=== PATIENT | male | born 1950 | race Caucasian/White ===

== ENCOUNTER 2024-06-30 22:07 | Inpatient (IN) ==
--- NOTE | 2024-06-30 22:38 | ED Physician Documentation ---
History of Present Illness Stated complaint Stated Complaint: INCREASING WEAKNESS Chief complaint Chief Complaint: Resp Additonal information Additional information: 73-year-old with history of hyperlipidemia, depression, and atenolol use of unknown reason presents with altered mental status and weakness. Patient lives by himself. His daughter has been visiting daily and noticing he has progressively worsened and deteriorated over the last couple days. Today, he has been languishing on the couch and becoming more altered and less responsive. When EMS was called, he was found to have oxygen saturation 80%. He was placed on BiPAP and transferred here for further evaluation. At this time he is poorly responsive and barely answering yes or no questions. He denies chest pain and dyspnea when asked. I did confirm DNR/DNI with his POLST and his daughter. Meds/Allgy Allergies Allergies Allergy/AdvReac Type Severity Reaction Status Date / Time No Known Drug Allergies Allergy Verified 06/30/24 22:22 [facility] Active Problems All Active Problems (Updated 07/01/24 @ 00:13 by Alfredo Landyr MD) Acute metabolic encephalopathy (Acute) Sepsis (Acute) Acute hypercapnic respiratory failure (Acute) Pneumonia involving right lung (Acute) Social History Social History Smoking Status: Former smoker Relationship: Home Mobility Equipment: Walker Do you feel safe in your home environment?: Yes Suffered physical, verbal, emotional, or financial abuse?: No Exam Exam Patient is acutely ill and poorly responsive. Initially he does wake up and answer yes or no questions but is unable to ride further history. He is currently on BiPAP. Lung sounds are diminished bilaterally. Abdomen is soft and nontender. There is edema of the left lower extremity. There is edema of the left upper extremity. There are no sacral wounds. Results Vitals Vitals: Vital Signs - 24 hr 06/30/24 22:07 06/30/24 22:24 06/30/24 23:02 Temperature 36.3 C L Temperature Source Temporal Artery Scan Pulse Rate 97 90 78 Respiratory Rate 28 H 19 Blood Pressure 124/80 82/52 L O2 Saturation 92 97 O2 Source Room air BIPAP Fraction of Inspired Oxygen (FIO2) 100 FiO2 (%) 60 Pain Intensity 6 06/30/24 23:30 06/30/24 23:49 07/01/24 00:25 Temperature Temperature Source Pulse Rate 80 81 75 Respiratory Rate 24 Blood Pressure 92/51 L 93/60 79/48 L O2 Saturation 94 96 96 O2 Source BIPAP BIPAP BIPAP Fraction of Inspired Oxygen (FIO2) FiO2 (%) 60 60 Pain Intensity 0 07/01/24 00:41 07/01/24 01:00 07/01/24 01:05 Temperature Temperature Source Pulse Rate 73 72 73 Respiratory Rate 24 24 24 Blood Pressure 96/53 L 94/54 L 80/46 L O2 Saturation 96 96 95 O2 Source BIPAP BIPAP BIPAP Fraction of Inspired Oxygen (FIO2) FiO2 (%) Pain Intensity Oxygen O2 Source BIPAP EKG (time done) 2221: EKG releavant findings:: EKG personally interpreted by author of this note. Relevant findings are: Rate: Rate (enter#) (88) Rhythm: NSR Climax: RAD Intervals: Normal DE Ischemia: T wave inversion; No Normal ST segments, ST elevation c/w ischemia, ST depression or Hyperacute T waves Other comments: Other comments (T wave inversions in lead III, aVF, V1 through V5) Computer interpretation: Agree with computer Labs Labs: Laboratory Tests 06/30/24 06/30/24 06/30/24 22:15 22:52 23:21 WBC 14.5 H RBC 5.25 Hgb 14.7 Hct 50.7 MCV 96.6 H MCH 28.0 MCHC 29.0 L RDW 18.4 H Plt Count 173 MPV 12.6 H Neut # (Auto) 11.1 H Lymph # (Auto) 0.8 L [place] # (Auto) 2.2 H Eos # (Auto) 0.0 Baso # (Auto) 0.2 H Absolute Nucleated RBC 0.00 Band Neuts % (Manual) Not Reportable Abnorm Lymph % (Manual) Not Reportable Nucleated RBC % 0.0 Neutrophils # (Manual) Not Reportable Lymphocytes # (Manual) Not Reportable Monocytes # (Manual) Not Reportable Eosinophils # (Manual) Not Reportable Basophils # (Manual) Not Reportable Differential Comment MANUAL=AUTO DIFF Manual Slide Review Indicated Platelet Estimate NORMAL (130-450,000) Platelet Morphology NORMAL APPEARANCE RBC Morph Micro Appear 1+ ANISOCYTOSIS VBG pH 7.271 L VBG pCO2 81.4 H VBG pO2 39.0 VBG HCO3 37.8 H VBG Total CO2 40.3 H VBG O2 Saturation 53.0 L VBG Base Excess 10.7 H Sodium 140 Potassium 5.5 H Chloride 101 Carbon Dioxide 34 H Anion Gap 5.0 L BUN 44 H Creatinine 1.2 Estimated GFR (MDRD) 59 L Glucose 162 H Lactic Acid 2.8 H Calcium 8.6 Total Bilirubin 0.6 AST 25 ALT 12 Alkaline Phosphatase 61 Total Creatine Kinase 381 H Troponin I High Sens 82.1 H* Total Protein 6.7 Albumin 3.5 Globulin 3.2 Albumin/Globulin Ratio 1.1 Urine Color Urine Clarity Urine pH Ur Specific [place] Urine Protein Urine Glucose (UA) Urine Ketones Urine Occult Blood Urine Nitrite Urine Bilirubin Urine Urobilinogen Ur Leukocyte Esterase Urine RBC Urine WBC Ur Squamous Epith Cells Amorphous Sediment Urine Bacteria Urine Casts Urine Mucus Ur Microscopic Review Urine Culture Comments SARS-CoV-2 (PCR) NOT DETECTED 06/30/24 07/01/24 23:45 00:34 WBC RBC Hgb Hct MCV MCH MCHC RDW Plt Count MPV Neut # (Auto) Lymph # (Auto) [place] # (Auto) Eos # (Auto) Baso # (Auto) Absolute Nucleated RBC Band Neuts % (Manual) Abnorm Lymph % (Manual) Nucleated RBC % Neutrophils # (Manual) Lymphocytes # (Manual) Monocytes # (Manual) Eosinophils # (Manual) Basophils # (Manual) Differential Comment Manual Slide Review Platelet Estimate Platelet Morphology RBC Morph Micro Appear VBG pH 7.335 VBG pCO2 66.1 H VBG pO2 60.8 H VBG HCO3 35.6 H VBG Total CO2 37.6 H VBG O2 Saturation 87.0 H VBG Base Excess 9.5 H Sodium Potassium Chloride Carbon Dioxide Anion Gap BUN Creatinine Estimated GFR (MDRD) Glucose Lactic Acid Calcium Total Bilirubin AST ALT Alkaline Phosphatase Total Creatine Kinase Troponin I High Sens Total Protein Albumin Globulin Albumin/Globulin Ratio Urine Color DARK YELLOW Urine Clarity CLEAR Urine pH 5.5 Ur Specific [place] 1.025 Urine Protein 100 H Urine Glucose (UA) NEGATIVE Urine Ketones TRACE Urine Occult Blood NEGATIVE Urine Nitrite NEGATIVE Urine Bilirubin SMALL H Urine Urobilinogen 4 H Ur Leukocyte Esterase NEGATIVE Urine RBC 0-5 Urine WBC 4-5 Ur Squamous Epith Cells NONE SEEN Amorphous Sediment Few Urine Bacteria None Seen Urine Casts 11-25 Hyaline Casts Urine Mucus Few Strands Ur Microscopic Review INDICATED Urine Culture Comments NOT INDICATED SARS-CoV-2 (PCR) PD Medical Decision Making ED course Complexity details: reviewed results, re-evaluated patient, considered differential, d/w patient, d/w family and d/w PMD ED course: Patient presents with altered mental status and increasing weakness. While in the emergency department, his condition gradually deteriorated. He was maintained on BiPAP, but his VBG significant hypercarbia, so I uptitrated the settings appropriately hoping to venitilate his CO2. Chest radiograp hinterpreted by me shows consolidation of the right lung suspicious for pneuimonia. Given leukocytosis altered mental status and this, I think this is the cause of his symptoms. There was a mildly elevated lactate, so 2 L of fluids were given. Ceftriaxone was ordered. His blood pressure then started to drop, so norepinephrine was ordered. I discussed the case our hospitalist, and the patient was admitted to the ICU for further monitoring of pneumonia and critical status. Patient is DNR/DNI, which I confirmed with his daughter. Critical Care Critical Care Provided: Yes Time(min): 40 Time Includes: Direct patient care, Review records, Reassess patient, Document care, Coordinate care, Medical consult and Family consult for tx dec Data interpretation: Labs, Pulse ox, ABG and CXR Procedures included in critical care time: Ventilator mgmt Discharge Plan Discharge Patient Disposition: 66 [facility] DC/Xfer Condition: Critical Clinical Impression: Pneumonia involving right lung, Acute hypercapnic respiratory failure, Sepsis, Acute metabolic encephalopathy Interventions: ED Admission Assessment Last Done: 07/01/24 01:15
[2024-06-30 22:50] LABS: BASOPHILS # (AUTO) 0.2 10^3/uL (0.0-0.1); EOSINOPHILS % (AUTO) 0.1 %; HCT - HEMATOCRIT 50.7 % (42.0-52.0); HGB - HEMOGLOBIN 14.7 g/dL (14.0-18.0); LYMPHOCYTES # (AUTO) 0.8 10^3/uL (1.5-3.5); LYMPHOCYTES % (AUTO) 5.7 %; MEAN CORPUSCULAR VOLUME 96.6 fL (80.0-94.0); MEAN PLATELET VOLUME 12.6 fL (7.4-11.4); MONOCYTES # (AUTO) 2.2 10^3/uL (0.0-1.0); MONOCYTES % (AUTO) 15.1 %; NEUTROPHILS # (AUTO) 11.1 10^3/uL (1.5-6.6); NEUTROPHILS % (AUTO) 76.5 %; PLT - PLATELET COUNT 173 10^3/uL (130-450); RED BLOOD COUNT 5.25 10^6/uL (4.70-6.10); RED CELL DISTRIBUTION WIDTH 18.4 % (12.0-15.0); WHITE BLOOD COUNT 14.5 x10^3/uL (4.8-10.8)
[2024-06-30 22:59] LABS: VBG PCO2 81.4 mmHg (41-51); VBG PH 7.271 (7.31-7.41)
[2024-06-30 23:00] LABS: SLIDE REVIEW? Indicated
[2024-06-30 23:00] LABS: VBG BASE EXCESS 10.7 mmol/L (-2 - +2); VBG TOTAL CO2 40.3 mmol/L (24-29)
[2024-06-30] MEDS: LACTATED RINGERS 1,000 ML IV ONE (23:12)
[2024-06-30 23:18] LABS: ALBUMIN 3.5 g/dL (3.2-5.5); ALBUMIN/GLOBULIN RATIO 1.1 (1.0-2.2); BILIRUBIN,TOTAL 0.6 mg/dL (0.2-1.0); CALCIUM 8.6 mg/dL (8.5-10.3); CREATININE 1.2 mg/dL (0.6-1.3); POTASSIUM 5.5 mmol/L (3.5-4.5); TOTAL PROTEIN 6.7 g/dL (6.4-8.9)
--- NOTE | 2024-06-30 23:18 | XRAY Report ---
PROCEDURE: XR Chest 1V INDICATIONS: shortness of air TECHNIQUE: One view of the chest was acquired. COMPARISON: None. FINDINGS AND IMPRESSION: Right mid and lower lung consolidation. Small right pleural effusion. This is suspicious for pneumoni a. Consider future imaging surveillance to assess for resolution. Normal heart size. Degenerative osseous changes. Reviewed by: Etienne Tomas MD on 06/30/2024 11:17 PM PDT Approved by: Etienne Tomas MD on 06/30/2024 11:17 PM PDT Station ID: [id number]
[2024-06-30 23:21] LABS: PLATELET ESTIMATE, MANUAL NORMAL (130-450,000) (NORMAL); PLATELET MORPHOLOGY NORMAL APPEARANCE (NORMAL); RBC MORPHOLOGY (MULTIPLE) 1+ ANISOCYTOSIS (NORMAL)
[2024-06-30 23:22] LABS: DIFFERENTIAL COMMENT MANUAL=AUTO DIFF
[2024-06-30] MEDS ORDERED: cefTRIAXone 2 GM VIAL ONE (23:28)
[2024-06-30] MEDS: cefTRIAXone 2 GM in SODIUM CHLORIDE 0.9% MINIBAG 100 ML IV STA (23:31)
[2024-06-30 23:54] LABS: BILIRUBIN,URINE SMALL (NEGATIVE); GLUCOSE, URINE (UA) NEGATIVE (NEGATIVE); KETONES,URINE (UA) TRACE mg/dL (NEGATIVE); LEUKOCYTE ESTERASE, URINE NEGATIVE (NEGATIVE); NITRITE,URINE NEGATIVE (NEGATIVE); OCCULT BLOOD,URINE NEGATIVE (NEGATIVE); PH,URINE 5.5 PH (5.0-7.5); PROTEIN,URINE 100 mg/dL (NEGATIVE); UROBILINOGEN,URINE 4 E.U./dL (NORMAL)
[2024-06-30 23:58] LABS: CLARITY,URINE CLEAR (CLEAR)
[2024-07-01 00:05] LABS: RBC,URINE 0-5 /HPF (0-5); SQUAMOUS EPITHELIAL CELL,UR NONE SEEN (<= Few)
[2024-07-01 00:06] LABS: AMORPHOUS SEDIMENT,UR Few /LPF; BACTERIA,URINE None Seen /HPF (None Seen); CASTS, URINE 11-25 Hyaline Casts /LPF; MUCUS,URINE Few Strands
[2024-07-01] MEDS: LACTATED RINGERS 1,000 ML IV ONE ×2 (00:35→11:50)
[2024-07-01 00:50] LABS: VBG BASE EXCESS 9.5 mmol/L (-2 - +2); VBG PCO2 66.1 mmHg (41-51); VBG PH 7.335 (7.31-7.41); VBG PO2 60.8 mmHg (25-47); VBG TOTAL CO2 37.6 mmol/L (24-29)
[2024-07-01] MEDS ORDERED: ONDANSETRON 4 MG/2 ML VIAL IVP PRN (00:51)
[2024-07-01] MEDS ORDERED: ACETAMINOPHEN 325 MG TABLET PO PRN (00:51)
[2024-07-01] MEDS ORDERED: PIPERACILLIN/TAZOBACTAM 3.375 GM in SODIUM CHLORIDE 0.9% MINIBAG 100 ML IV SCH (01:00)
--- NOTE | 2024-07-01 01:21 | HISTORY & PHYSICAL EXAMINATION ---
Chief Complaint Chief Complaint Chief Complaint: AMS History of Present Illness History of Present Illness HPI Comment/Other: 73 Y old male with PMH HTN, hyperlipidemia, brought to the ER due to AMS. Pt is currently confused and on Bipap and unable to provide any history so most of history is by ER physician. Apparently pt`s condition was deteriorating over the last several years. When daughter saw him, he was confused. EMS was called. Pt was hypoxic with Sao2 80%. Pt was put on Bipap and brought to the ER. On arrival pt, was hypoxic , confused and hypotensive. Labs showed leukocytois, lactic acid 2.3, Trop 80. VBG showed hypercarbia chest x ray showed Right lung consolidation with pleural effusion Pt was oin bipap Pt was given IVF, Ceftriaxone Levophed gtt was ordered due to hypotension Pt is admitted due to Acute hypoxic/hypercarbic respiratory failure due to pneumonia, pleural effusion, severe sepsis, elevated trop Review of Systems Status of ROS: unobtainable due to medical condition PFSH Active Problems All Active Problems (Updated 07/01/24 @ 00:13 by Alfredo Landry MD) Acute metabolic encephalopathy (Acute) Sepsis (Acute) Acute hypercapnic respiratory failure (Acute) Pneumonia involving right lung (Acute) Social History Social History Relationship: Do you feel safe in your home environment?: Yes Suffered physical, verbal, emotional, or financial abuse?: No POLST Patient has POLST: Yes Meds/Allgy Allergies Allergies Allergy/AdvReac Type Severity Reaction Status Date / Time No Known Drug Allergies Allergy Verified 06/30/24 22:22 Exam Constitutional Pt appears confused, on BIPAP HENMT normocephalic Chest inspection of chest normal Respiratory Decreased breath sounds in right lung Cardiovascular normal heart rate noted Gastrointestinal abdomen normal to inspection Extremities normal to inspection Neurology Pt is confused Skin no rash Conclusion/Plan Problem List (1) Pneumonia involving right lung: Plan: A: Acute hypoxic/hypercarbic respiratory failure Right lung pneumonia, possible aspiration Pleural effusion Severe sepsis/ Shock Acute encephalopathy Elevated troponin Leukocytosis Lactic acidosis HTN Hyperlipidemia Plan: Admit in ICU Bipap NPO Swallow eval Follow cultures Start zosyn and vanco Duo nebs q6h Start NS @ 125 cc/h Monitor lactic acid q6h Start levophed gtt per protocol Seriel trop Repeat CBC, BMP in am DVT prophylaxic: SCD, lovenox sq Full code Pt is admitted as inpatient as more than 2 midnight stay is expceted Lab Results 06/30/24 22:15 06/30/24 22:15
[2024-07-01] MEDS: NOREPINEPHRINE/0.9 % NS 8 MG/250 ML BAG IV SCH (01:26)
[2024-07-01] MEDS: SODIUM CHLORIDE FLUSH 0.9% 10 ML SYRINGE IVP SCH (01:53)
[2024-07-01] MEDS: SODIUM CHLORIDE 0.9% 1,000 ML IV SCH (01:53)
[2024-07-01] MEDS: IPRATROPIUM/ALBUTEROL 3 ML NEB INH SCH (01:53)
[2024-07-01] MEDS ORDERED: VANCOMYCIN INJ 1.75 GM in SODIUM CHLORIDE 0.9% 500 ML IV SCH (02:00)
[2024-07-01] MEDS: PIPERACILLIN/TAZOBACTAM 3.375 GM in SODIUM CHLORIDE 0.9% MINIBAG 100 ML IV SCH (05:10)
[2024-07-01 05:37] LABS: CALCIUM, IONIZED 1.12 mmol/L (1.09-1.30); VBG PH 7.347 (7.31-7.41)
[2024-07-01 05:43] LABS: BASOPHILS # (AUTO) 0.1 10^3/uL (0.0-0.1); BASOPHILS % (AUTO) 0.7 %; HCT - HEMATOCRIT 44.4 % (42.0-52.0); HGB - HEMOGLOBIN 12.9 g/dL (14.0-18.0); LYMPHOCYTES # (AUTO) 0.8 10^3/uL (1.5-3.5); LYMPHOCYTES % (AUTO) 5.7 %; MEAN CORPUSCULAR HEMOGLOBIN 27.9 pg (27.0-31.0); MEAN CORPUSCULAR HGB CONC 29.1 g/dL (32.0-36.0); MEAN CORPUSCULAR VOLUME 95.9 fL (80.0-94.0); MEAN PLATELET VOLUME 12.7 fL (7.4-11.4); MONOCYTES # (AUTO) 2.6 10^3/uL (0.0-1.0); MONOCYTES % (AUTO) 18.5 %; NEUTROPHILS # (AUTO) 10.2 10^3/uL (1.5-6.6); NEUTROPHILS % (AUTO) 74.2 %; PLT - PLATELET COUNT 162 10^3/uL (130-450); RED BLOOD COUNT 4.63 10^6/uL (4.70-6.10); RED CELL DISTRIBUTION WIDTH 17.8 % (12.0-15.0); WHITE BLOOD COUNT 13.8 x10^3/uL (4.8-10.8)
[2024-07-01 05:49] LABS: SLIDE REVIEW? Indicated
[2024-07-01 05:57] LABS: CALCIUM 7.8 mg/dL (8.5-10.3); PHOSPHORUS 4.7 mg/dL (2.5-5.0); POTASSIUM 5.6 mmol/L (3.5-4.5)
[2024-07-01 06:08] LABS: TROPONIN I HIGH SENSITIVITY 97.2 ng/L (2.3-19.7)
[2024-07-01 06:56] LABS: PLATELET ESTIMATE, MANUAL NORMAL (130-450,000) (NORMAL); PLATELET MORPHOLOGY NORMAL APPEARANCE (NORMAL); RBC MORPHOLOGY (MULTIPLE) NORMAL APPEARANCE (NORMAL)
[2024-07-01 06:57] LABS: DIFFERENTIAL COMMENT MANUAL=AUTO DIFF
[2024-07-01] MEDS: ENOXAPARIN 40 MG/0.4 ML SYRINGE SUBQ SCH (08:53)
[2024-07-01] MEDS: VANCOMYCIN INJ 2 GM, VANCOMYCIN INJ 500 MG in SODIUM CHLORIDE 0.9% 500 ML IV ONE (08:54)
[2024-07-01] MEDS: HYDROCORTISONE SUCCINATE 100 MG/2 ML VIAL IVP SCH (09:59)
[2024-07-01 13:11] LABS: POTASSIUM 5.6 mmol/L (3.5-4.5)
[2024-07-01 13:17] LABS: TROPONIN I HIGH SENSITIVITY 114.3 ng/L (2.3-19.7)
[2024-07-01] MEDS ORDERED: VANCOMYCIN INJ 0.75 GM in SODIUM CHLORIDE 0.9% 250 ML IV SCH (14:00)
[2024-07-01] MEDS: INSULIN REGULAR, HUMAN 300 UNIT/3 ML PEN IVP ONE (14:04)
[2024-07-01] MEDS: DEXTROSE 50% ABBOJECT 25 GM/50 ML SYRINGE IVP ONE (14:04)
[2024-07-01] MEDS: SODIUM ZIRCONIUM CYCLOSILICATE 5 GM PACKET PO SCH (14:08)
[2024-07-01] MEDS ORDERED: CONCENTRATED ALBUTEROL NEB 2.5 MG/0.5 ML INH ONE (14:30)
[2024-07-01] MEDS: CONCENTRATED ALBUTEROL NEB 2.5 MG/0.5 ML INH STA (14:31)
[2024-07-01 15:17] LABS: ABG BASE EXCESS 6.8 mmol/L (-2.0-3.0); ABG HCO3 34.2 mmol/L (22.0-26.0); ABG OXYGEN SATURATION 96 % (95-98); ABG PH 7.25 (7.35-7.45); ABG PO2 85 mmHg (83-108); ABG TCO2 36.5 mmol/L (21.0-29.0)
[2024-07-01 15:18] LABS: ALLEN TEST POSITIVE
[2024-07-01 15:21] LABS: ABG PCO2 77 mmHg (34-45)
--- NOTE | 2024-07-01 15:58 | CT Report ---
PROCEDURE: CT Head WO INDICATIONS: Transient alteration of consciousness TECHNIQUE: Noncontrast 4.5 mm thick angled axial sections acquired from the foramen magnum to the vertex. For r adiation dose reduction, the following was used: automated exposure control, adjustment of mA and/or kV according to patient size. COMPARISON: None. FINDINGS: Image quality: Diagnostic. Some images are limited by beam hardening artifacts, patient motion artifa cts. Ventricles and cortical sulci are moderately dilated commonly represents a pattern of atrophy. [id number] areas of low-attenuation in the periventricular and deep white matter commonly relat ed to chronic small vessel ischemic changes. Mucoperiosteal thickening, retention cyst or polyp opacification right maxillary sinus measures up to 2 cm thickness. E dentulous. Moderate vascular calcifications bilateral cavernous, supraclinoid carotids. No CT evidence of intracranial hemorrhage, mass lesion, mass effect, acute or subacute infarct. Otherwise the orbits, scalp, calvarium, mastoid air cells and middle air cavities within normal limit s. IMPRESSION: Atrophy and chronic small vessel ischemic changes. No CT evidence of intracranial hemorrhage. If symptoms persist or worsen, or there is high clinical suspicion of intracranial abnormality, MR co uld be performed. Reviewed by: Aryan Castañeda MD on 07/01/2024 3:57 PM PDT Approved by: Aryan Castañeda MD on 07/01/2024 3:57 PM PDT Station ID: [id number]
[2024-07-01 18:13] LABS: CALCIUM 7.9 mg/dL (8.5-10.3); CREATININE 1.2 mg/dL (0.6-1.3); POTASSIUM 4.8 mmol/L (3.5-4.5)
[2024-07-01] MEDS: VANCOMYCIN INJ 1 GM, VANCOMYCIN INJ 250 MG in SODIUM CHLORIDE 0.9% 250 ML IV SCH (20:02)
[2024-07-01] MEDS ORDERED: LIDOCAINE 2% URO-JET 5 ML SYRINGE UR PRN (20:56)
[2024-07-02 04:55] LABS: HCT - HEMATOCRIT 40.7 % (42.0-52.0); HGB - HEMOGLOBIN 11.3 g/dL (14.0-18.0); MEAN CORPUSCULAR HEMOGLOBIN 27.9 pg (27.0-31.0); MEAN CORPUSCULAR HGB CONC 27.8 g/dL (32.0-36.0); MEAN CORPUSCULAR VOLUME 100.5 fL (80.0-94.0); RED BLOOD COUNT 4.05 10^6/uL (4.70-6.10); RED CELL DISTRIBUTION WIDTH 17.6 % (12.0-15.0); WHITE BLOOD COUNT 16.6 x10^3/uL (4.8-10.8)
[2024-07-02 05:10] LABS: CALCIUM 7.2 mg/dL (8.5-10.3); CREATININE 0.9 mg/dL (0.6-1.3); MAGNESIUM 1.9 mg/dL (1.7-2.3)
--- NOTE | 2024-07-02 09:41 | PROVIDER PROGRESS NOTE ---
Subjective Subjective Subjective: Today, patient's mentation is improved. He is alert and oriented x 4. He states that his shortness of breath has gotten mildly worse. He feels like he has a wet cough, but nothing is coming up. He has no fevers or chills. Overall, he has not been taking very good care of himself. He has not filled medications in the last few years. His only medical history that he can tell me is that he had a cardiac stent placed many years ago. Current Medications Current Medications Current Medications: Current Medications Generic Name Dose Route Start Last Admin Trade Name Freq PRN Reason Stop Dose Admin Acetaminophen 650 mg 07/01/24 00:51 Acetaminophen 325 Mg Tablet PO Q4HR PRN Pain 1 to 4, or Fever Albuterol/Ipratropium 3 ml 07/01/24 01:00 07/02/24 07:49 Ipratropium/Albuterol 3 Ml Neb INH 3 ml RTQ6H DAVID Administration Enoxaparin Sodium 40 mg 07/01/24 09:00 07/02/24 08:07 Enoxaparin 40 Mg/0.4 Ml Syringe SUBQ 40 mg DAILY DAVID Administration Hydrocortisone Sodium Succinate 100 mg 07/01/24 10:00 07/02/24 05:25 Hydrocortisone Succinate 100 Mg/2 Ml Vial IVP 100 mg TID DAVID Administration Norepinephrine/Sodium Chloride 8 mg in 250 mls @ 7.5 mls/hr 07/01/24 01:00 07/02/24 08:00 Levophed 8 Mg/250-0.9% Nacl IV 0 mcg/min .[id number] DAVID 0 mls/hr Titration Protocol 4 MCG/MIN Sodium Chloride 1,000 mls @ 125 mls/hr 07/01/24 01:00 07/02/24 08:15 Normal Saline 0.9% IV 0 mls/hr .Q8H DAVID Infusion Piperacillin Sod/Tazobactam 100 mls @ 25 mls/hr 07/01/24 05:00 07/02/24 05:25 Sod 3.375 gm/ Sodium Chloride IV 25 mls/hr Q8H DAVID Administration Vancomycin HCl 1 gm/ 250 mls @ 167 mls/hr 07/01/24 20:00 07/02/24 08:07 Vancomycin HCl 250 mg/ Sodium IV 167 mls/hr Chloride Q12H DAVID Administration Lidocaine HCl 2.5 ml 07/01/24 20:56 Lidocaine 2% Uro-Jet 5 Ml Syringe UR 07/02/24 20:55 ONCE PRN PER PHYSICIAN ORDER Ondansetron HCl 4 mg 07/01/24 00:51 Ondansetron 4 Mg/2 Ml Vial IVP Q6HR PRN Nausea / Vomiting Sodium Chloride 10 ml 07/01/24 01:00 07/02/24 08:09 Sodium Chloride Flush 0.9% 10 Ml Syringe IVP 10 ml 0100,0900,1700 DAVID Administration Sodium Chloride 10 ml 07/01/24 00:51 Sodium Chloride Flush 0.9% 10 Ml Syringe IVP PRN PRN NEEDED PER PROVIDER ORDERS Objective Vital Signs/Intake & Output Reviewed Vital Signs: Yes Vital Signs: Vital Signs x48h Temp Pulse Pulse Resp BP Pulse Ox O2 Flow Rate 07/02/24 09:00 92 21 107/50 L 96 10 07/02/24 08:26 100 20 6 07/02/24 08:00 99.0 F 92 24 110/56 L 89 L 6 07/02/24 07:00 84 18 106/54 L 94 14 07/02/24 06:00 85 16 102/49 L 98 14 07/02/24 05:00 14 07/02/24 05:00 83 17 97/50 L 98 14 07/02/24 04:00 99.3 F 83 17 91/40 L 97 14 07/02/24 03:00 87 30 H 120/58 L 96 14 07/02/24 03:00 14 07/02/24 02:00 86 17 105/55 L 95 14 Intake & Output: Intake & Output 06/29/24 06/30/24 07/01/24 07/02/24 23:59 23:59 23:59 23:59 Intake Total 1100 / 1100 5825 / 5825 2749 / 2749 Output Total 200 / 200 162 / 162 Balance 1100 / 1100 5625 / 5625 2587 / 2587 Weight (kg) 89 kg 98 kg 96.5 kg Objective General Appearance: positive No acute distress and Alert; negative Anxious Eyes Bilateral: positive Normal inspection, PERRL and EOMI ENT: positive ENT inspection nml, Pharynx nml and No signs of dehydration Neck: positive Nml inspection, Thyroid nml and No JVD Respiratory: positive Chest non-tender, No respiratory distress, Wheezes (mild expiratory), Rales (mild bibasilar crackles) and Other (diminished air entry bilaterally) Cardiovascular: positive Regular rate & rhythm and No murmur; negative Systolic murmur or Diastolic murmur Abdomen: positive Non-tender; negative Tenderness, Guarding, Rebound, Hepatomegaly, Splenomegaly or Mass Back: positive Nml inspection; negative CVA tenderness (R) or CVA tenderness (L) Skin: positive Color nml, No rash, Warm and Dry Extremities: positive No pedal edema; negative Non-tender (Bilateral feet with extensive scaling, onychomycosis, distorted nails) Neurologic/Psychiatric: positive Oriented x3 and Mood/affect nml Lab Results 07/02/24 04:15 07/02/24 04:15 Other Labs: Lab Results x24hrs 07/02/24 07/02/24 07/01/24 Range/Units 08:57 04:15 17:55 WBC 16.6 H (4.8-10.8) x10^3/uL RBC 4.05 L (4.70-6.10) 10^6/uL Hgb 11.3 L (14.0-18.0) g/dL Hct 40.7 L (42.0-52.0) % MCV 100.5 H (80.0-94.0) fL MCH 27.9 (27.0-31.0) pg MCHC 27.8 L (32.0-36.0) g/dL RDW 17.6 H (12.0-15.0) % Plt Count 140 (130-450) 10^3/uL MPV 13.0 H (7.4-11.4) fL Bld Gas Analysis Time Sample Site ABG pH (7.35-7.45) ABG pCO2 (34-45) mmHg ABG pO2 (83-108) mmHg ABG HCO3 (22.0-26.0) mmol/L ABG Total CO2 (21.0-29.0) mmol/L ABG O2 Saturation (95-98) % ABG Base Excess (-2.0-3.0) mmol/L Jesus Test O2 Delivery Device O2 Liters/Min LPM Sodium 140 144 (135-145) mmol/L Potassium 5.0 H 4.8 H (3.5-4.5) mmol/L Chloride 107 107 (101-111) mmol/L Carbon Dioxide 30 31 (21-32) mmol/L Anion Gap 3.0 L 6.0 (6-13) BUN 32 H 37 H (6-20) mg/dL Creatinine 0.9 1.2 (0.6-1.3) mg/dL Estimated GFR (MDRD) 82 L 59 L (>89) Glucose 159 H 180 H (74-104) mg/dL Calcium 7.2 L 7.9 L (8.5-10.3) mg/dL Magnesium 1.9 (1.7-2.3) mg/dL Total Creatine Kinase (30-223) IU/L Troponin I High Sens 53.1 H* (2.3-19.7) ng/L 07/01/24 07/01/24 Range/Units 15:05 12:41 WBC (4.8-10.8) x10^3/uL RBC (4.70-6.10) 10^6/uL Hgb (14.0-18.0) g/dL Hct (42.0-52.0) % MCV (80.0-94.0) fL MCH (27.0-31.0) pg MCHC (32.0-36.0) g/dL RDW (12.0-15.0) % Plt Count (130-450) 10^3/uL MPV (7.4-11.4) fL Bld Gas Analysis Time 1511 Sample Site RIGHT RADIAL ABG pH 7.25 L (7.35-7.45) ABG pCO2 77 H* (34-45) mmHg ABG pO2 85 (83-108) mmHg ABG HCO3 34.2 H (22.0-26.0) mmol/L ABG Total CO2 36.5 H (21.0-29.0) mmol/L ABG O2 Saturation 96 (95-98) % ABG Base Excess 6.8 H (-2.0-3.0) mmol/L Jesus Test POSITIVE O2 Delivery Device OXYMASK O2 Liters/Min 6.00 LPM Sodium 143 (135-145) mmol/L Potassium 5.6 H (3.5-4.5) mmol/L Chloride 107 (101-111) mmol/L Carbon Dioxide 35 H (21-32) mmol/L Anion Gap 1.0 L (6-13) BUN 35 H (6-20) mg/dL Creatinine 1.0 (0.6-1.3) mg/dL Estimated GFR (MDRD) 73 L (>89) Glucose 103 (74-104) mg/dL Calcium 8.0 L (8.5-10.3) mg/dL Magnesium (1.7-2.3) mg/dL Total Creatine Kinase 120 (30-223) IU/L Troponin I High Sens 114.3 H* (2.3-19.7) ng/L Diagnostic Imaging Diagnostic Imaging Results: positive Final report reviewed Assessment/Plan Problem List (1) Acute hypoxic respiratory failure: Impression: When patient presented, he was altered, had increased work of breathing, and was hypoxic requiring BiPAP. Chest x-ray she did menstruated right mid and lower lung consolidation, as well as a small right pleural effusion. Treating for pneumonia at this time. Patient also was septic, requiring Levophed, which has now been weaned off. BiPAP has been slowly weaned off to 7 L nasal cannula. Blood cultures, sputum cultures have been ordered and are pending. Received vancomycin and Zosyn. Will de-escalate him to [place] and azithromycin. Pending cultures, susceptibilities, as well as clinical course for further antibiotic management. (2) Septic shock: Impression: Patient was in septic shock requiring pressor support. This is now been weaned off. Was started on stress dose steroids initially. Will down titrate hydrocortisone 100 mg 3 times daily to twice daily today. Plan to continue to wean stress dose steroids. (3) Elevated troponin: Impression: Downtrending. No active chest pain. No EKG changes noted to demonstrate ischemia. Likely secondary to demand ischemia in setting of above. (4) Respiratory acidosis: Impression: Patient has no history of obesity hypoventilation syndrome, COPD, asthma. However, did have CO2 retention and respiratory acidosis. Received BiPAP, and this is now improved. (5) Hyperkalemia: Impression: Persistent hyperkalemia. Normal renal function noted. Continue to treat, and trend. (6) Hx of heart artery stent: Impression: Patient does have a history of a heart stent placed many years ago. As such, he should at least be on aspirin and statin. He is unsure what medications he is taking. Will start this at this time.
[2024-07-02] MEDS: SODIUM CHLORIDE FLUSH 0.9% 10 ML SYRINGE IVP PRN (13:04)
--- NOTE | 2024-07-02 13:24 | PHARMACY PROGRESS NOTE ---
Best Possible Medication History Admit Date and Time: 07/01/24 [id number] Home Medications Medication Instructions Recorded Confirmed Type No Known Home Medications 07/02/24 07/02/24 History Processed by: Pharmacy Medications reviewed in ED?: No Medication History completed: Yes Patient Interview: Pt unable to participate Secondary Source(s): Pharmacy records and Insurance records [facility] Statement: As the person ultimately responsible for medication therapy, providers are able to order a medication from an existing home medication list in [facility] via the "Reconcile Routine" prior to Confirmation of that medication by customer support manager. Such practice is discouraged except when the physician, in their clinical judgment, deems that a medical need exists for a medication without regard to previous use.
[2024-07-02 16:34] LABS: B. PARAPERTUSSIS- RESP PCR PAN NOT DETECTED; B. PERTUSSIS- RESP PCR PANEL NOT DETECTED; C. PNEUMONIAE- RESP PCR PANEL NOT DETECTED; CORONAVIRUS 229E-RESP PCR NOT DETECTED; CORONAVIRUS HKU1-RESP PCR NOT DETECTED; CORONAVIRUS NL63-RESP PCR NOT DETECTED; CORONAVIRUS OC43-RESP PCR NOT DETECTED; HUMAN METAPNEUMOVIRUS NOT DETECTED; INFLUENZA A- RESP PCR PANEL NOT DETECTED; INFLUENZA B - RESP PCR PANEL NOT DETECTED; M. PNEUMONIAE- RESP PCR PANEL NOT DETECTED; PARAINFLUENZA VIRUS 1 NOT DETECTED; PARAINFLUENZA VIRUS 2 NOT DETECTED; PARAINFLUENZA VIRUS 4 NOT DETECTED; RHINOVIRUS/ENTEROVIRUS NOT DETECTED; RSV- RESP PCR PANEL NOT DETECTED; SARS-CoV-2 -RESP PCR PANEL NOT DETECTED
[2024-07-02] MEDS: ATORVASTATIN 40 MG TABLET PO SCH (20:31)
[2024-07-02] MEDS: HYDROCORTISONE SUCCINATE 100 MG/2 ML VIAL IVP SCH (20:31)
[2024-07-03 05:20] LABS: HCT - HEMATOCRIT 40.5 % (42.0-52.0); HGB - HEMOGLOBIN 11.3 g/dL (14.0-18.0); MEAN CORPUSCULAR HEMOGLOBIN 27.8 pg (27.0-31.0); MEAN CORPUSCULAR HGB CONC 27.9 g/dL (32.0-36.0); MEAN CORPUSCULAR VOLUME 99.5 fL (80.0-94.0); RED BLOOD COUNT 4.07 10^6/uL (4.70-6.10); RED CELL DISTRIBUTION WIDTH 17.4 % (12.0-15.0); WHITE BLOOD COUNT 24.6 x10^3/uL (4.8-10.8)
[2024-07-03 05:27] LABS: CALCIUM, IONIZED 1.17 mmol/L (1.09-1.30); VBG PH 7.288 (7.31-7.41)
[2024-07-03 05:32] LABS: MAGNESIUM 1.9 mg/dL (1.7-2.3); PHOSPHORUS 2.9 mg/dL (2.5-5.0)
[2024-07-03 05:55] LABS: CALCIUM 7.7 mg/dL (8.5-10.3); CREATININE 1.1 mg/dL (0.6-1.3); POTASSIUM 5.1 mmol/L (3.5-4.5)
[2024-07-03] MEDS: ASPIRIN EC 81 MG TABLET PO SCH (08:08)
[2024-07-03] MEDS: AZITHROMYCIN 250 MG TABLET PO SCH (08:08)
[2024-07-03] MEDS: cefTRIAXone 1 GM VIAL IVP SCH (08:08)
[2024-07-03] MEDS: HYDROCORTISONE SUCCINATE 100 MG/2 ML VIAL IVP SCH (08:08)
[2024-07-03] MEDS ORDERED: SODIUM CHLORIDE FOR INHALATION 5 ML NEB ONE (09:02)
[2024-07-03] MEDS: CONCENTRATED ALBUTEROL NEB 2.5 MG/0.5 ML INH STA (09:07)
[2024-07-03] MEDS: DEXTROSE 50% ABBOJECT 25 GM/50 ML SYRINGE IVP ONE (09:09)
[2024-07-03] MEDS: SODIUM ZIRCONIUM CYCLOSILICATE 5 GM PACKET PO SCH (09:09)
[2024-07-03] MEDS: INSULIN REGULAR, HUMAN 300 UNIT/3 ML PEN IVP ONE (09:10)
--- NOTE | 2024-07-03 09:50 | PROVIDER PROGRESS NOTE ---
Subjective Subjective Subjective: Patient is a 73-year-old male with a past medical history of a cardiac stent in 2020, unknown status of heart failure, extensive tobacco use with no formal diagnosis of COPD who presented with worsening dyspnea, fatigue, altered mentation. He was in septic shock, with a likely pulmonary source. He was initially placed on BiPAP with improvement in his mentation and his breathing status. He was initially on vancomycin and and Zosyn, which was de-escalated to Rocephin and azithromycin. He has been weaned off of vasopressors, and now is on 4 L via oxy mask. Today, patient states he feels better. He feels like his breathing is better. He has had no fevers or chills. He still has a cough with productive sputum. He states that he smoked about 1 to 2 packs/day for over 20 years, and quit 3 years ago. He has never used inhalers or have been admitted for COPD exacerbations. He has not seen a doctor in many years. He does state that in 2020, he saw a hide buffer, and had a cardiac stent placed. He does not know if he has a history of heart failure. Current Medications Current Medications Current Medications: Current Medications Generic Name Dose Route Start Last Admin Trade Name Freq PRN Reason Stop Dose Admin Acetaminophen 650 mg 07/01/24 00:51 Acetaminophen 325 Mg Tablet PO Q4HR PRN Pain 1 to 4, or Fever Albuterol/Ipratropium 3 ml 07/01/24 01:00 07/03/24 06:59 Ipratropium/Albuterol 3 Ml Neb INH 3 ml RTQ6H DAVID Administration Aspirin 81 mg 07/03/24 09:00 07/03/24 08:08 Aspirin Ec 81 Mg Tablet PO 81 mg DAILY DAVID Administration Atorvastatin Calcium 40 mg 07/02/24 21:00 07/02/24 20:31 Atorvastatin 40 Mg Tablet PO 40 mg QPM DAVID Administration Azithromycin 500 mg 07/03/24 09:00 07/03/24 08:08 Azithromycin 250 Mg Tablet PO 500 mg DAILY DAVID Administration Ceftriaxone Sodium 1 gm 07/03/24 09:00 07/03/24 08:08 Ceftriaxone 1 Gm Vial IVP 1 gm DAILY DAVID Administration Enoxaparin Sodium 40 mg 07/01/24 09:00 07/03/24 08:08 Enoxaparin 40 Mg/0.4 Ml Syringe SUBQ 40 mg DAILY DAVID Administration Hydrocortisone Sodium Succinate 50 mg 07/03/24 09:00 07/03/24 08:08 Hydrocortisone Succinate 100 Mg/2 Ml Vial IVP 50 mg BID DAVID Administration Norepinephrine/Sodium Chloride 8 mg in 250 mls @ 7.5 mls/hr 07/01/24 01:00 07/02/24 08:00 Levophed 8 Mg/250-0.9% Nacl IV 0 mcg/min .[id number] DAVID 0 mls/hr Titration Protocol 4 MCG/MIN Ondansetron HCl 4 mg 07/01/24 00:51 Ondansetron 4 Mg/2 Ml Vial IVP Q6HR PRN Nausea / Vomiting Sodium Chloride 10 ml 07/01/24 01:00 07/03/24 08:09 Sodium Chloride Flush 0.9% 10 Ml Syringe IVP 10 ml 0100,0900,1700 DAVID Administration Sodium Chloride 10 ml 07/01/24 00:51 07/02/24 20:32 Sodium Chloride Flush 0.9% 10 Ml Syringe IVP 10 ml PRN PRN Administration NEEDED PER PROVIDER ORDERS Sodium Zirconium Cyclosilicate 10 gm 07/03/24 09:00 07/03/24 09:09 Sodium Zirconium Cyclosilicate 5 Gm Packet PO 07/03/24 21:01 10 gm BID DAVID Administration Objective Vital Signs/Intake & Output Reviewed Vital Signs: Yes Vital Signs: Vital Signs x48h Temp Pulse Pulse Resp BP Pulse Ox O2 Flow Rate 07/03/24 09:00 102 H 25 H 108/58 L 97 4 07/03/24 08:00 98.4 F 90 22 114/59 L 91 L 6 07/03/24 07:03 4 07/03/24 07:03 87 18 07/03/24 07:00 84 24 120/63 99 4 07/03/24 06:00 82 16 106/53 L 98 4 07/03/24 05:00 85 21 107/60 95 4 07/03/24 04:00 83 19 107/60 95 4 07/03/24 03:00 90 23 112/62 97 4 07/03/24 02:00 90 20 105/63 96 4 Intake & Output: Intake & Output 06/30/24 07/01/24 07/02/24 07/03/24 23:59 23:59 23:59 23:59 Intake Total 1100 / 1100 5825 / 5825 5474 / 5474 920 / 920 Output Total 200 / 200 412 / 412 Balance 1100 / 1100 5625 / 5625 5062 / 5062 920 / 920 Weight (kg) 89 kg 98 kg 96.5 kg 96.5 kg Objective General Appearance: positive No acute distress and Alert; negative Anxious Eyes Bilateral: positive Normal inspection, PERRL and EOMI ENT: positive ENT inspection nml, Pharynx nml and No signs of dehydration Neck: positive Nml inspection, Thyroid nml and No JVD Respiratory: positive Chest non-tender, No respiratory distress, Wheezes (mild expiratory), Rales (mild bibasilar crackles) and Other (diminished air entry bilaterally) Cardiovascular: positive Regular rate & rhythm and No murmur; negative Systolic murmur or Diastolic murmur Abdomen: positive Non-tender; negative Tenderness, Guarding, Rebound, Hepatomegaly, Splenomegaly or Mass Back: positive Nml inspection; negative CVA tenderness (R) or CVA tenderness (L) Skin: positive Color nml, No rash, Warm and Dry Extremities: positive No pedal edema; negative Non-tender (Bilateral feet with extensive scaling, onychomycosis, distorted nails) Neurologic/Psychiatric: positive Oriented x3 and Mood/affect nml Lab Results 07/03/24 05:09 07/03/24 05:09 Other Labs: Lab Results x24hrs 07/03/24 07/02/24 Range/Units 05:09 15:30 WBC 24.6 H (4.8-10.8) x10^3/uL RBC 4.07 L (4.70-6.10) 10^6/uL Hgb 11.3 L (14.0-18.0) g/dL Hct 40.5 L (42.0-52.0) % MCV 99.5 H (80.0-94.0) fL MCH 27.8 (27.0-31.0) pg MCHC 27.9 L (32.0-36.0) g/dL RDW 17.4 H (12.0-15.0) % Plt Count 154 (130-450) 10^3/uL MPV 13.0 H (7.4-11.4) fL VBG pH 7.288 L (7.31-7.41) Ionized Calcium 1.17 (1.09-1.30) mmol/L Sodium 141 (135-145) mmol/L Potassium 5.1 H (3.5-4.5) mmol/L Chloride 107 (101-111) mmol/L Carbon Dioxide 32 (21-32) mmol/L Anion Gap 2.0 L (6-13) BUN 32 H (6-20) mg/dL Creatinine 1.1 (0.6-1.3) mg/dL Estimated GFR (MDRD) 65 L (>89) Glucose 130 H (74-104) mg/dL Calcium 7.7 L (8.5-10.3) mg/dL Phosphorus 2.9 (2.5-5.0) mg/dL Magnesium 1.9 (1.7-2.3) mg/dL Nasal Adenovirus (PCR) NOT DETECTED Nasal B. parapertussis DNA (PCR) NOT DETECTED Nasal Coronavir 229E PCR NOT DETECTED Nasal Coronavir HKU1 PCR NOT DETECTED Nasal Coronavir NL63 PCR NOT DETECTED Nasal Coronavir OC43 PCR NOT DETECTED Nasal Enterovir/Rhinovir PCR NOT DETECTED Nasal Influenza B PCR NOT DETECTED Nasal Influenza A PCR NOT DETECTED Nasal Parainfluen 1 PCR NOT DETECTED Nasal Parainfluen 2 PCR NOT DETECTED Nasal Parainfluen 3 PCR NOT DETECTED Nasal Parainfluen 4 PCR NOT DETECTED Nasal RSV (PCR) NOT DETECTED Nasal B.pertussis DNA PCR NOT DETECTED Nasal C.pneumoniae (PCR) NOT DETECTED Wang Human Metapneumo PCR NOT DETECTED Nasal M.pneumoniae (PCR) NOT DETECTED Nasal SARS-CoV-2 (PCR) NOT DETECTED Diagnostic Imaging Diagnostic Imaging Results: positive Final report reviewed Assessment/Plan Problem List (1) Acute hypoxic respiratory failure: Impression: When patient presented, he was altered, had increased work of breathing, and was hypoxic requiring BiPAP. Chest x-ray demosntrated right mid and lower lung consolidation, as well as a small right pleural effusion. Treating for pneumonia at this time. Patient also was septic, requiring Levophed, which has now been weaned off. BiPAP has been slowly weaned off to 4 L nasal cannula. Blood cultures, sputum cultures have been ordered and are pending. No growth to date. Received vancomycin and Zosyn. Will de-escalate him to Rocpehin and azithromycin. Pending cultures, susceptibilities, as well as clinical course for further antibiotic management. Leukocytosis did increase overnight, but this may be due to his stress dose steroids. He has been afebrile, and feels better. Will keep him on Rocephin and azithromycin for now; if continues to increase, can likely escalate once again. (2) Septic shock: Impression: Patient was in septic shock requiring pressor support. This is now been weaned off. Was started on stress dose steroids initially. Slowly weaning off - hydrocortisone 100 mg 3 times daily decreased to twice daily yesterday. Today, I have decreased him further to 50 mg BID. Plan to continue to wean stress dose steroids. (3) Elevated troponin: Impression: Downtrending. No active chest pain. No EKG changes noted to demonstrate ischemia. Likely secondary to demand ischemia in setting of above. (4) Respiratory acidosis: Impression: Patient has no history of obesity hypoventilation syndrome, COPD, asthma. However, did have CO2 retention and respiratory acidosis. Received BiPAP, and this is now improved. (5) Hyperkalemia: Impression: Persistent hyperkalemia. Normal renal function noted. Continue to treat, and trend. (6) Hx of heart artery stent: Impression: Patient does have a history of a heart stent placed many years ago. As such, he should at least be on aspirin and statin. He is unsure what medications he is taking. Will start this at this time. ECHO ordered, pending. (7) Pain due to onychomycosis of toenails of both feet: Impression: Patient has bilateral onychomycosis of both feet, extensive, which will need likely debridement. Spoke with orthopedics, and can follow-up with podiatry in the outpatient setting. (8) Tobacco use: Impression: Patient states he smoked more than a pack a day for over 20 years, quit about 3 years ago. No official diagnosis of COPD. Does not use inhalers.
[2024-07-03 15:31] LABS: CALCIUM 8.1 mg/dL (8.5-10.3); CREATININE 1.1 mg/dL (0.6-1.3); POTASSIUM 4.6 mmol/L (3.5-4.5)
[2024-07-04 07:11] LABS: HCT - HEMATOCRIT 40.2 % (42.0-52.0); HGB - HEMOGLOBIN 11.2 g/dL (14.0-18.0); MEAN CORPUSCULAR HEMOGLOBIN 28.1 pg (27.0-31.0); MEAN CORPUSCULAR HGB CONC 27.9 g/dL (32.0-36.0); MEAN CORPUSCULAR VOLUME 100.8 fL (80.0-94.0); MEAN PLATELET VOLUME 12.5 fL (7.4-11.4); RED BLOOD COUNT 3.99 10^6/uL (4.70-6.10); RED CELL DISTRIBUTION WIDTH 17.3 % (12.0-15.0); WHITE BLOOD COUNT 24.2 x10^3/uL (4.8-10.8)
[2024-07-04 07:16] LABS: VBG PH 7.295 (7.31-7.41)
[2024-07-04 07:17] LABS: CALCIUM, IONIZED 1.18 mmol/L (1.09-1.30)
[2024-07-04 07:36] LABS: MAGNESIUM 1.9 mg/dL (1.7-2.3); PHOSPHORUS 2.4 mg/dL (2.5-5.0)
[2024-07-04 07:46] LABS: CALCIUM 8.2 mg/dL (8.5-10.3); CREATININE 0.9 mg/dL (0.6-1.3); POTASSIUM 4.9 mmol/L (3.5-4.5)
[2024-07-04] MEDS ORDERED: IPRATROPIUM/ALBUTEROL 3 ML NEB INH PRN (08:13)
[2024-07-04] MEDS: MULTIVITAMIN W/MINERALS TABLET PO SCH (08:22)
--- NOTE | 2024-07-04 11:25 | PROVIDER PROGRESS NOTE ---
<Statement entered by Wan Harper MD - 07/04/24 19:18> I have seen and independantly examined the patient and agree with plan. However pt has developed worsening Respiratory status and is now tachypneic with increased oxygen demand of up to 7 L. Chest x-ray was done showing left-sided pleural effusion. Have given patient Lasix 40 mg IV x 1 with minimal improvements, will start patient on BiPAP and transfer patient to ICU. Will order a second dose of Lasix scheduled for 10 PM. Plan would be if the patient does not continue to improve he may eventually need to thoracentesis. If the patient does not remain stable overnight, this would require transfer to outside facility otherwise if patient can be stabilized the night, we will plan for consult with interventional radiology in the morning for possible thoracentesis. Subjective Prog Note Date Prog Note Date: 07/04/24 Subjective Subjective: Patient is a 73-year-old male with PMH significant for cardiac stent in 2019, unknown status of heart failure, extensive tobacco use with no formal diagnosis of COPD who presented with worsening dyspnea, fatigue, altered mentation. He was in septic shock, with a likely pulmonary source, but has since had improvement in his mentation and breathing status. He is currently on rocephin and azithromycin, with blood and sputum cultures orders placed. Currently, he's on 4L via oxy mask, however, his O2 drops quickly to low 80s if this is removed. Today, patient states he feels a little better than yesterday. He has no fever or chills. He still has a productive cough, but occasionally struggles to expel the sputum and is very fatigued by coughing spells. 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 (-) chest pain, palpitations, fever, chills, headache, GI/ sx. Current Medications Current Medications Current Medications: Current Medications Generic Name Dose Route Start Last Admin Trade Name Freq PRN Reason Stop Dose Admin Acetaminophen 650 mg 07/01/24 00:51 Acetaminophen 325 Mg Tablet PO Q4HR PRN Pain 1 to 4, or Fever Albuterol/Ipratropium 3 ml 07/04/24 08:13 Ipratropium/Albuterol 3 Ml Neb INH Q4H PRN Shortness of Air/Wheezing Aspirin 81 mg 07/03/24 09:00 07/04/24 08:22 Aspirin Ec 81 Mg Tablet PO 81 mg DAILY DAVID Administration Atorvastatin Calcium 40 mg 07/02/24 21:00 07/03/24 20:43 Atorvastatin 40 Mg Tablet PO 40 mg QPM DAVID Administration Azithromycin 500 mg 07/03/24 09:00 07/04/24 08:22 Azithromycin 250 Mg Tablet PO 500 mg DAILY DAVID Administration Ceftriaxone Sodium 1 gm 07/03/24 09:00 07/04/24 08:22 Ceftriaxone 1 Gm Vial IVP 1 gm DAILY DAVID Administration Enoxaparin Sodium 40 mg 07/01/24 09:00 07/04/24 08:22 Enoxaparin 40 Mg/0.4 Ml Syringe SUBQ 40 mg DAILY DAVID Administration Hydrocortisone Sodium Succinate 50 mg 07/03/24 09:00 07/04/24 08:22 Hydrocortisone Succinate 100 Mg/2 Ml Vial IVP 50 mg BID DAVID Administration Multivitamins/Minerals 1 tab 07/04/24 08:00 07/04/24 08:22 Multivitamin W/Minerals Tablet PO 1 tab DAILYWM DAVID Administration Ondansetron HCl 4 mg 07/01/24 00:51 Ondansetron 4 Mg/2 Ml Vial IVP Q6HR PRN Nausea / Vomiting Sodium Chloride 10 ml 07/01/24 01:00 07/04/24 08:22 Sodium Chloride Flush 0.9% 10 Ml Syringe IVP 10 ml 0100,0900,1700 DAVID Administration Sodium Chloride 10 ml 07/01/24 00:51 07/03/24 20:44 Sodium Chloride Flush 0.9% 10 Ml Syringe IVP 10 ml PRN PRN Administration NEEDED PER PROVIDER ORDERS Objective Vital Signs/Intake & Output Reviewed Vital Signs: Yes Vital Signs: Vital Signs x48h Temp Pulse Pulse Resp BP Pulse Ox O2 Flow Rate 07/04/24 08:10 37.2 C 95 20 111/60 98 4 07/04/24 07:50 90 18 4 07/04/24 07:50 4 Intake & Output: Intake & Output 07/01/24 07/02/24 07/03/24 07/04/24 23:59 23:59 23:59 23:59 Intake Total 5825 / 5825 5474 / 5474 1810 / 1810 240 / 240 Output Total 200 / 200 412 / 412 Balance 5625 / 5625 5062 / 5062 1810 / 1810 240 / 240 Weight (kg) 98 kg 96.5 kg 96.5 kg 96.7 kg Objective General Appearance: positive No acute distress, Alert, Mild distress and Anxious (When he coughs. ) Eyes Bilateral: positive Normal inspection, PERRL, EOMI and Other (bilateral tearing post-cough. ) ENT: positive ENT inspection nml, Pharynx nml and No signs of dehydration Neck: positive Nml inspection, Thyroid nml and No JVD Respiratory: positive Chest non-tender, No respiratory distress, Wheezes (mild expiratory), Rales (mild bibasilar crackles) and Other (Diminished breath sounds on left > right. Overall decreased tidal volume and prolonged expiratory phase. ) Cardiovascular: positive Regular rate & rhythm and No murmur; negative Systolic murmur or Diastolic murmur Abdomen: positive Non-tender; negative Tenderness, Guarding, Rebound, Hepatomegaly, Splenomegaly or Mass Back: positive Nml inspection; negative CVA tenderness (R) or CVA tenderness (L) Skin: positive Color nml, No rash, Warm and Dry Extremities: positive Pedal edema (Bilateral 1+ pitting. ); negative Non-tender (Bilateral feet with extensive scaling, onychomycosis, distorted nails) Neurologic/Psychiatric: positive Oriented x3, Mood/affect nml and Other (Right arm resting tremor (chronic per pt).) Lab Results 07/04/24 07:03 07/04/24 07:03 Other Labs: Lab Results x24hrs 07/04/24 07/03/24 Range/Units 07:03 15:11 WBC 24.2 H (4.8-10.8) x10^3/uL RBC 3.99 L (4.70-6.10) 10^6/uL Hgb 11.2 L (14.0-18.0) g/dL Hct 40.2 L (42.0-52.0) % MCV 100.8 H (80.0-94.0) fL MCH 28.1 (27.0-31.0) pg MCHC 27.9 L (32.0-36.0) g/dL RDW 17.3 H (12.0-15.0) % Plt Count 159 (130-450) 10^3/uL MPV 12.5 H (7.4-11.4) fL VBG pH 7.295 L (7.31-7.41) Ionized Calcium 1.18 (1.09-1.30) mmol/L Sodium 143 141 (135-145) mmol/L Potassium 4.9 H 4.6 H (3.5-4.5) mmol/L Chloride 107 104 (101-111) mmol/L Carbon Dioxide 35 H 33 H (21-32) mmol/L Anion Gap 1.0 L 4.0 L (6-13) BUN 28 H 31 H (6-20) mg/dL Creatinine 0.9 1.1 (0.6-1.3) mg/dL Estimated GFR (MDRD) 82 L 65 L (>89) Glucose 101 172 H (74-104) mg/dL Calcium 8.2 L 8.1 L (8.5-10.3) mg/dL Phosphorus 2.4 L (2.5-5.0) mg/dL Magnesium 1.9 (1.7-2.3) mg/dL Diagnostic Imaging Diagnostic Imaging Results: positive Final report reviewed ABX Reporting Has patient been on IV antibiotics over the past 48 hours?: Yes Assessment/Plan Problem List (1) Acute hypoxic respiratory failure: Impression: Continue treatment for pnuemonia. He has primarily been on 4-6 L via oxygen mask. Continue with rocephin and azithromycin. Blood and sputum cultures are pending. Leukocytosis is unchanged from yesterday (24.2, prev. 24.6). Steroids are being titrated down. LE extremity edema has increased from yesterday, he had compression on this morning. Echo results below. * Hydrocortisone 50 mg IVP BID * Duoneb 3mL INH Q4H PRN * Waiting for blood and sputum culture results * Ordered CXR to evaluate pleural effusion -- consider diuretic because he has edema, hypertension, and pleural effusion. it could be a result of the pneumonia and may improve with antibiotics. He has diminished respiratory function so more aggressive intervention may be needed. 07/04 Echo: * Normal left ventricular size and function, EF 55%. Left atrium is normal in size * Moderate to severely dilated right ventricle with mildly reduced function. There is moderate pulmonary hypertension, PASP 53 mmHg. * Moderately calcified aortic valve with normal valve function. * Left pleural effusion noted. 07/03 When patient presented, he was altered, had increased work of breathing, and was hypoxic requiring BiPAP. Chest x-ray demonstrated right mid and lower lung consolidation, as well as a small right pleural effusion. Treating for pneumonia at this time. Patient also was septic, requiring Levophed, which has now been weaned off. BiPAP has been slowly weaned off to 4 L nasal cannula. Blood cultures, sputum cultures have been ordered and are pending. No growth to date. Received vancomycin and Zosyn. Will de-escalate him to Rocpehin and azithromycin. Pending cultures, susceptibilities, as well as clinical course for further antibiotic management. Leukocytosis did increase overnight, but this may be due to his stress dose steroids. He has been afebrile, and feels better. Will keep him on Rocephin and azithromycin for now; if continues to increase, can likely escalate once again. (2) Septic shock: Impression: Today he is on 50 mg hydrocortisone twice daily. 07/03 Patient was in septic shock requiring pressor support. This is now been weaned off. Was started on stress dose steroids initially. Slowly weaning off - hydrocortisone 100 mg 3 times daily decreased to twice daily yesterday. Today, I have decreased him further to 50 mg BID. Plan to continue to wean stress dose steroids. (3) Elevated troponin: Impression: Unchanged, no active chest pain or palpitations. Echo was completed this morning, waiting for results. 07/03 Downtrending. No active chest pain. No EKG changes noted to demonstrate ischemia. Likely secondary to demand ischemia in setting of above. (4) Respiratory acidosis: Impression: Today he has CO2 retention and respiratory acidosis. Likely due to diminished respiratory function. Since admission he has improved clinically. Could consider repeat blood gas. * pH 7.295 (prev. 7.288) * serum CO2 35 (prev. 32) 07/03 Patient has no history of obesity hypoventilation syndrome, COPD, asthma. However, did have CO2 retention and respiratory acidosis. Received BiPAP, and this is now improved. (5) Hyperkalemia: Impression: Unchanged. Continue to treat and trend. 07/03 Persistent hyperkalemia. Normal renal function noted. Continue to treat, and trend. (6) Hx of heart artery stent: Impression: Chronic, unchanged. Awaiting echo results. Now on aspirin and atorvastatin. 07/03 Patient does have a history of a heart stent placed many years ago. As such, he should at least be on aspirin and statin. He is unsure what medications he is taking. Will start this at this time. ECHO ordered, pending. (7) Pain due to onychomycosis of toenails of both feet: Impression: Chronic, unchanged. He was a bit embarrassed of his feet today, so hopefully he can get outpatient treatment. 07/03 Patient has bilateral onychomycosis of both feet, extensive, which will need likely debridement. Spoke with orthopedics, and can follow-up with podiatry in the outpatient setting. (8) Tobacco use: Impression: Chronic, unchanged. 07/03 Patient states he smoked more than a pack a day for over 20 years, quit about 3 years ago. No official diagnosis of COPD. Does not use inhalers.
--- NOTE | 2024-07-04 13:39 | PT Plan of Care ---
PT Plan of Care Physical Therapy Plan of Care: Diagnosis Diagnosis ARF c hypoxia Diagnosis pneumonia Referring Provider Ghada Arauz Patient Status Inpatient Chief Complaint Chief Complaint weakness, confusion, SOA Onset of Chief Complaint a few weeks [employer] Assessment Assessment Pt is a pleasantly confused 73yo M referred for PT eval d/t limited mobility. Admitted to hospital with ARF c hypoxia, now on 4L O2 and sats 94% at rest. Pt lives indep in multistory home but set up for 1st level living, 2-3STE without handrail. Has a walker but does not use per dtr who is present throughout PT eval. Pt is indep at baseline but does have assist from dtr and neighbors that assist with meals, errands, etc. Per dtr pt has had decline in mobility and ability to care for himself over last 3-4 weeks. Upon PT eval, pt supine on 4L, sats WNL. Initially pt echolalic but unclear if pt is joking around or confused. Overall A&O to self only. Able to orient to date and location but quickly forgets location and situation after reorientation. Per RN and pt's dtr, pt's current confusion has increased compared to yesterday. Pt is able to follow cueing 50% of time however requires maxAx2 for rolling in bed and repositioning. Sats decrease to 90% during bed mobility and pt frequently reaching to remove oxymask. Able to redirect and replaces oxymask appropriately. Despite pt's current confusion he is agreeable and able to follow skilled cueing. Pt may benefit from PT in acute setting to improve activity tolerance and regain PLOF. When medically clear, PT rec dc to SNF for further rehab. Goals Improve bed mobility to: Moderate Assist Improve supine to sit to: Moderate Assist Improve sit to stand to: Moderate Assist Improve pivot transfer ability Moderate Assist to: Improve sit to supine to: Moderate Assist Improve gait ability to: Mod A Assistive Device Used: Front Wheeled Walker PT Plan of Care Frequency 1-2x/day Duration Until goals are met Discharge Recommendations Discharge Location [facility] DC Equipment Recommended Front wheeled walker Other may need FWW Transport Needs at Discharge B.L.S Other BLS d/t unable to sit up, poor trunk control and global deconditioning
--- NOTE | 2024-07-04 13:52 | OT Plan of Care ---
OT Inpatient POC Diagnosis DIAGNOSIS Diagnosis: ARF c hypoxia Diagnosis: pneumonia Chief Complaint: weakness, confusion, SOA Onset of Chief Complaint: a few weeks [employer] Assessment and Goals ASSESSMENT Assessment: Patient is a 73-year-old male with a past medical history of a cardiac stent in 2020, unknown status of heart failure, extensive tobacco use with no formal diagnosis of COPD who presented with worsening dyspnea, fatigue, altered mentation. Work up revealed septic shock, likely from pulmonary source. Adm to ICU for monitoring and management requiring BiPAP with improvement in his mentation and his breathing status. Weaned off of vasopressors, and now on 4 L via oxy mask. HR stable Spo2 90%-93% with minimal bed mobility. Met supine in bed, A&O to self only- date with choices, somewhat echolalic speech at times. Confused but redirectable. B UE grossly deconditioned Noted resting tremor in R UE which daughter states is new since ~1-2 weeks. Pt MAX Ax2 rolling R<>L using hand rails for support. MAX A DEP ADLs at this time. Not appropriate for OOB 2/2 fatigue and respiratory status. elizabeth presents with decreased endurance, activity tolerance and ADL status. Will benefit from cont OT services during acute stay. Rec d/c to SNF at this time. -Activities of Daily Living Improve Upper Extremity Dressing to:: Minimal Assist Improve Lower Extremity Dressing to:: Moderate Assist Improve Grooming/Hygiene to:: Minimal Assist Improve Bathing to:: Minimal Assist Improve Toileting to:: Minimal Assist OT Inpatient Plan PLAN Treatment Frequency: 1x/day Duration: Until discharge -Discharge Recommendations Discharge Location: Assisted Facility Transport Needs at Discharge: Luis Eduardo
[2024-07-04] MEDS: FUROSEMIDE 40 MG/4 ML VIAL IVP SCH ×2 (18:26→21:28)
[2024-07-04 19:58] LABS: ABG BASE EXCESS 12.8 mmol/L (-2.0-3.0); ABG HCO3 42.4 mmol/L (22.0-26.0); ABG PO2 60 mmHg (83-108); ALLEN TEST POSITIVE
[2024-07-04 20:00] LABS: ABG OXYGEN SATURATION 86 % (95-98); ABG PCO2 131 mmHg (34-45); ABG PH 7.12 (7.35-7.45); ABG TCO2 46.5 mmol/L (21.0-29.0)
[2024-07-04 20:04] LABS: HCT - HEMATOCRIT 47.8 % (42.0-52.0); HGB - HEMOGLOBIN 13.1 g/dL (14.0-18.0)
[2024-07-04] MEDS ORDERED: iohexoL-300 100 ML VIAL ONE (21:36)
[2024-07-04 21:57] LABS: ABG BASE EXCESS 13.5 mmol/L (-2.0-3.0); ABG HCO3 41.8 mmol/L (22.0-26.0); ABG OXYGEN SATURATION 97 % (95-98); ABG PO2 78 mmHg (83-108); ALLEN TEST POSITIVE
[2024-07-04 21:58] LABS: ABG RESPIRATORY RATE 20 b/min
[2024-07-04 22:00] LABS: ABG PCO2 107 mmHg (34-45); ABG TCO2 45.1 mmol/L (21.0-29.0)
[2024-07-04] MEDS: METOPROLOL 5 MG/5 ML VIAL IVP PRN (22:21)
[2024-07-04] MEDS: iohexoL-300 100 ML VIAL IVP ONE (23:05)
--- NOTE | 2024-07-04 23:58 | CT Report ---
PROCEDURE: CT Angio Chest INDICATIONS: Evaluate for PE CONTRAST: 70CC [id number] TECHNIQUE: After the administration of intravenous contrast, 2 mm axial images were acquired from the pulmonary apices to the posterior costophrenic angles during the arterial phase. In addition, 1 mm lung kernel and 5 mm soft tissue kernel reconstructions were performed. 3-dimensional coronal oblique maximum int ensity projection (MIP) reformats, 8 mm axial MIP, and 5 mm coronal and sagittal MPR reformats were t hen performed through the thorax. For radiation dose reduction, the following was used: automated exp osure control, adjustment of mA and/or kV according to patient size. COMPARISON: Chest radiograph 07/04/2024. FINDINGS: Image quality: Diagnostic. Large vessels: No filling defects within the opacified pulmonary arteries, accounting for motion and contrast timing. No evidence of acute aortic syndrome or aortic aneurysm. Lungs and pleura: Right lower lobe consolidation Moderate bilateral pleural effusions with subjacent atelectasis. No pneumothorax. No suspicious pulmonary nodules which require follow up. Mediastinum: Heart size is normal. No pericardial effusion. No large vessel abnormality. No mediastin al adenopathy by size criteria. Chest wall and lower neck: Thyroid is unremarkable. No axillary or supraclavicular adenopathy by size . Bones: No aggressive osseous abnormality. Upper Abdomen: Unremarkable. IMPRESSION: No pulmonary embolus. Right middle lobe pneumonia. Moderate bilateral pleural effusions with subjacent atelectasis. Reviewed by: Radha Sharif MD, PhD on 07/04/2024 11:57 PM PDT Approved by: Radha Sharif MD, PhD on 07/04/2024 11:57 PM PDT Station ID: [id number]
--- NOTE | 2024-07-05 01:19 | PROVIDER PROGRESS NOTE ---
Neonatal Intensive Care Nurse Note Neonatal Intensive Care Nurse Note Neonatal Intensive Care Nurse Note: notified by the nurse of the following Pt's HR is sustaining at 161, not sure if he is on flutter, don't see a P waves and HR is stuck at 161. Pt. recived 5 mg IV Metoprolol at 2221. B/P-103/72. Should we do an EKG now and find the underlying rhythm? EKG ordered, will follow up.
[2024-07-05] MEDS: METOPROLOL 5 MG/5 ML VIAL IVP SCH ×2 (01:53→05:22)
[2024-07-05] MEDS: SODIUM CHLORIDE 0.9% 250 ML IV ONE (01:53)
[2024-07-05 02:31] LABS: MAGNESIUM 1.8 mg/dL (1.7-2.3)
[2024-07-05 02:34] LABS: CALCIUM 8.4 mg/dL (8.5-10.3); POTASSIUM 5.4 mmol/L (3.5-4.5)
[2024-07-05 02:45] LABS: CREATININE 1.2 mg/dL (0.6-1.3)
[2024-07-05 04:25] LABS: CALCIUM, IONIZED 1.19 mmol/L (1.09-1.30); VBG PH 7.239 (7.31-7.41)
[2024-07-05 04:31] LABS: BASOPHILS % (AUTO) 0.1 %; HGB - HEMOGLOBIN 13.5 g/dL (14.0-18.0); MEAN CORPUSCULAR HEMOGLOBIN 28.1 pg (27.0-31.0); MEAN CORPUSCULAR HGB CONC 27.6 g/dL (32.0-36.0); MEAN CORPUSCULAR VOLUME 101.9 fL (80.0-94.0); MEAN PLATELET VOLUME 13.6 fL (7.4-11.4); MONOCYTES % (AUTO) 8.8 %; NEUTROPHILS % (AUTO) 82.6 %; PLT - PLATELET COUNT 195 10^3/uL (130-450); RED BLOOD COUNT 4.81 10^6/uL (4.70-6.10); RED CELL DISTRIBUTION WIDTH 17.2 % (12.0-15.0)
[2024-07-05 04:34] LABS: WHITE BLOOD COUNT 69.7 x10^3/uL (4.8-10.8)
[2024-07-05 04:46] LABS: CALCIUM 8.6 mg/dL (8.5-10.3); CREATININE 1.4 mg/dL (0.6-1.3); PHOSPHORUS 4.2 mg/dL (2.5-5.0); POTASSIUM 5.7 mmol/L (3.5-4.5)
[2024-07-05 04:51] LABS: ABNORMAL LYMPHS % (MANUAL) 1 %; BAND NEUTROPHILS % (MANUAL) 2 %; LYMPHOCYTES # (MANUAL) 2.1 10^3/uL (1.5-3.5); LYMPHOCYTES % (MANUAL) 2 %; METAMYELOCYTES % (MANUAL) 7 %; MONOCYTES # (MANUAL) 5.6 10^3/uL (0.0-1.0); MYELOCYTES % (MANUAL) 3 %; NEUTROPHILS # (MANUAL) 54.4 10^3/uL (1.5-6.6); PROMYELOCYTES % (MANUAL) 1 %
[2024-07-05 04:52] LABS: DIFFERENTIAL COMMENT MANUAL DIFFERENTIAL; PLATELET ESTIMATE, MANUAL NORMAL (130-450,000) (NORMAL); PLATELET MORPHOLOGY 1+ LARGE PLATELETS (NORMAL); WBC MORPHOLOGY (MULTIPLE) NORMAL APPEARANCE (NORMAL)
[2024-07-05 05:14] LABS: ABG OXYGEN SATURATION 94 % (95-98); ABG PO2 68 mmHg (83-108)
[2024-07-05 05:15] LABS: ABG BASE EXCESS 10.2 mmol/L (-2.0-3.0); ABG HCO3 38.8 mmol/L (22.0-26.0); ABG RESPIRATORY RATE 20 b/min; ALLEN TEST POSITIVE
[2024-07-05 05:16] LABS: ABG PCO2 104 mmHg (34-45); ABG PH 7.18 (7.35-7.45)
--- NOTE | 2024-07-05 08:07 | XRAY Report ---
PROCEDURE: XR Chest 1V INDICATIONS: Left pleural effusion noted on echo TECHNIQUE: One view of the chest was acquired. COMPARISON: None. FINDINGS: The heart is moderately enlarged. The mediastinum is unremarkable. Upper lobe pulmonary vasculature i s mildly distended likely redistribution due to bibasilar airspace disease.. Lungs: Moderate solid infiltrates are present in both lung bases Pleural spaces: Moderate right and [id number] left pleural effusion noted Bones and soft tissues: Unremarkable. IMPRESSION: Moderate bibasilar infiltrates and moderate bilateral pleural effusions. Reviewed by: Alonso Zuluaga MD on 07/05/2024 8:06 AM PDT Approved by: Alonso Zuluaga MD on 07/05/2024 8:06 AM PDT Station ID: [id number]
--- NOTE | 2024-07-05 08:09 | XRAY Report ---
PROCEDURE: XR Chest 1V INDICATIONS: shortness of breath TECHNIQUE: One view of the chest was acquired. COMPARISON: 07/04/[address] FINDINGS AND IMPRESSION: Slightly increased right lower lung opacities and bilateral mild to moderate effusions. Mild left-pilar ed atelectasis is also present. Findings are likely infectious. Differential includes a component of edema. Consider future imaging surveillance to assess for resolution. Cardiomegaly. Degenerative osseous structures. No significant changes from the preliminary report. Reviewed by: Etienne Tomas MD on 07/05/2024 8:08 AM PDT Approved by: Etienne Tomas MD on 07/05/2024 8:08 AM PDT Station ID: [id number]
[2024-07-05] MEDS: SODIUM BICARBONATE 100 MEQ in DEXTROSE 5% 1,000 ML IV SCH (08:27)
[2024-07-05 08:30] VITALS: TEMP 98.4
[2024-07-05] MEDS: AZITHROMYCIN INJ 500 MG in SODIUM CHLORIDE 0.9% 250 ML IV SCH (09:17)
[2024-07-05] MEDS: PIPERACILLIN/TAZOBACTAM 3.375 GM in SODIUM CHLORIDE 0.9% MINIBAG 100 ML IV SCH (09:17)
--- NOTE | 2024-07-05 09:58 | XRAY Report ---
PROCEDURE: XR Chest for Line Placement INDICATIONS: NGT placement TECHNIQUE: One view of the chest was acquired. COMPARISON: Chest x-ray performed earlier the same day at 0454 hours. FINDINGS: Surgical changes and devices: There is been placement of a nasogastric tube. The tube is curled in t he distal esophagus and the tip is directed cranially, residing in the midesophagus. Lungs and pleura: No significant change to prominent bibasilar mixed interstitial and alveolar opaci ties. Probable bilateral pleural effusions. No visible pneumothorax. Mediastinum: Stable cardiomediastinal contour. Cardiomegaly. Prominent pulmonary arteries. Bones and chest wall: No changes. IMPRESSION: Malposition of nasogastric tube. Recommend complete removal and reinsertion. No change to the heart and lungs. Reviewed by: Lissy Smith MD on 07/05/2024 9:56 AM PDT Approved by: Lissy Smith MD on 07/05/2024 9:56 AM PDT Station ID: [id number]
[2024-07-05 10:06] VITALS: BP 66/44; O2SAT 94
[2024-07-05] MEDS: MORPHINE 2 MG/ML CARPUJECT IVP PRN (10:46)
[2024-07-05] MEDS: LORazepam 2 MG/ML VIAL IVP PRN (10:46)
--- NOTE | 2024-07-05 13:09 | Ultrasound Report ---
PROCEDURE: US Chest INDICATIONS: Pleural effusion and respiratory distress TECHNIQUE: Real-time scanning was performed, and a suitable site was marked by the magnetic healer for thoracentesis to be performed by the referring clinician. COMPARISON: None. FINDINGS: Bilateral effusions are present. There is significant atelectatic lung. It is noted during evaluation , patient was unable to position for potential thoracentesis. IMPRESSION: Pleural effusions with significant atelectatic lung. Reviewed by: Bibi Casas MD on 07/05/2024 1:08 PM PDT Approved by: Bibi Casas MD on 07/05/2024 1:08 PM PDT Station ID: [id number]
--- NOTE | 2024-07-06 07:43 | Discharge Summary ---
Discharge Summary Admit Date: 07/01/24 Discharge Date: 07/05/24 Discharging Provider: Dr Wan Harper Code Status: Do Not Attempt Resuscitation DIAGNOSES Admission Diagnoses: Acute hypoxic/hypercarbic respiratory failure Right lung pneumonia, possible aspiration Pleural effusion Severe sepsis/ Shock Acute encephalopathy Elevated troponin Leukocytosis Lactic acidosis HTN Hyperlipidemia Discharge Diagnoses with Status of Each Condition: Acute respiratory failure with hypoxiapatient Septic shockresolved Hyperkalemiaimproved HOSPITAL COURSE Hospital Course: 07/05/24 - Patient * Patient had been more tachycardic much of the day on 318 and continued to require oxygen with hypoxia but was otherwise and not any respiratory distress. * Overnight the patient had worsening tachycardia with heart rates going into the 160s and 170s with multiple doses of IV metoprolol given which were not effective in improving heart rate. * In the morning patient was found to be in more respiratory distress with worsening tachypnea and was eventually placed on BiPAP. His mentation started to deteriorate even further as the patient became more lethargic. ABGs were performed. An overnight chest CT showed bilateral pleural effusions which was confirmed again on x-ray. This was discussed with interventional radiology as to the possibility of benefit from a thoracentesis however an ultrasound was recommended to further characterize the pleural effusion. Ultrasound demonstrated minimal pleural effusion that would be amenable to thoracentesis and recommendation was the risk significantly outweighed the benefits. He was also given Lasix 40 mg IV which did not improve his respiratory status and resulted in minimal urine output. He became hypotensive, with increasing oxygen demands on BiPAP. * There was some suspicion that he may have had an aspiration event so IV Zosyn was ordered. But the patient continued to rapidly decline. As the patient is DNR/DNI, patient's daughter Marcia was contacted to discuss further plans of care. After meeting with Marcia at the bedside, she ultimately decided to transition the patient to comfort care as this will be most in line with his wishes. After transitioning to comfort care the patient peacefully on 07/05/2024 - at 11:25 am. 07/04 Echo: * Normal left ventricular size and function, EF 55%. Left atrium is normal in size * Moderate to severely dilated right ventricle with mildly reduced function. There is moderate pulmonary hypertension, PASP 53 mmHg. * Moderately calcified aortic valve with normal valve function. * Left pleural effusion noted. 07/03 When patient presented, he was altered, had increased work of breathing, and was hypoxic requiring BiPAP. Chest x-ray demonstrated right mid and lower lung consolidation, as well as a small right pleural effusion. Treating for pneumonia at this time. Patient also was septic, requiring Levophed, which has now been weaned off. BiPAP has been slowly weaned off to 4 L nasal cannula. Blood cultures, sputum cultures have been ordered and are pending. No growth to date. Received vancomycin and Zosyn. Will de-escalate him to Rocpehin and azithromycin. Pending cultures, susceptibilities, as well as clinical course for further antibiotic management. Leukocytosis did increase overnight, but this may be due to his stress dose steroids. He has been afebrile, and feels better. Will keep him on Rocephin and azithromycin for now; if continues to increase, can likely escalate once again. (2) Septic shock: Impression: Today he is on 50 mg hydrocortisone twice daily. 07/03 Patient was in septic shock requiring pressor support. This is now been weaned off. Was started on stress dose steroids initially. Slowly weaning off - hydrocortisone 100 mg 3 times daily decreased to twice daily yesterday. Today, I have decreased him further to 50 mg BID. Plan to continue to wean stress dose steroids. (3) Elevated troponin: Impression: Unchanged, no active chest pain or palpitations. Echo was completed this morning, waiting for results. 07/03 Downtrending. No active chest pain. No EKG changes noted to demonstrate ischemia. Likely secondary to demand ischemia in setting of above. (4) Respiratory acidosis: Impression: Today he has CO2 retention and respiratory acidosis. Likely due to diminished respiratory function. Since admission he has improved clinically. Could consider repeat blood gas. * pH 7.295 (prev. 7.288) * serum CO2 35 (prev. 32) 07/03 Patient has no history of obesity hypoventilation syndrome, COPD, asthma. However, did have CO2 retention and respiratory acidosis. Received BiPAP, and this is now improved. (5) Hyperkalemia: Impression: Unchanged. Continue to treat and trend. 07/03 Persistent hyperkalemia. Normal renal function noted. Continue to treat, and trend. (6) Hx of heart artery stent: Impression: Chronic, unchanged. Awaiting echo results. Now on aspirin and atorvastatin. 07/03 Patient does have a history of a heart stent placed many years ago. As such, he should at least be on aspirin and statin. He is unsure what medications he is taking. Will start this at this time. ECHO ordered, pending. (7) Pain due to onychomycosis of toenails of both feet: Impression: Chronic, unchanged. He was a bit embarrassed of his feet today, so hopefully he can get outpatient treatment. 07/03 Patient has bilateral onychomycosis of both feet, extensive, which will need likely debridement. Spoke with orthopedics, and can follow-up with podiatry in the outpatient setting. (8) Tobacco use: Impression: Chronic, unchanged. 07/03 Patient states he smoked more than a pack a day for over 20 years, quit about 3 years ago. No official diagnosis of COPD. Does not use inhalers. ALLERGIES Allergies Allergy/AdvReac Type Severity Reaction Status Date / Time No Known Drug Allergies Allergy Verified 06/30/24 22:22 MEDICATIONS Ambulatory Orders Medication Instructions Recorded Confirmed No Known Home Medications 07/02/24 07/02/24 LABS 07/05/24 04:18 07/05/24 04:18 SEPSIS Current Stage of Sepsis: Sepsis Sepsis Criteria: Suspected or Documented TIME SPENT Time Spent in Discharge (Minutes): 92 Discharge Plan Discharge Patient Disposition: 20 Print Language: Rw[place] Date/Time: 07/05/24 11:25
== END 2024-07-05 11:25 | disposition expired | DRG 871 ==
LOC: ED 22:07 → ICU 07-01 01:12 → MS3 07-04 02:39 → ICU 07-04 19:44
PROVIDERS: ADMIT Internal Medicine; ATTEND Internal Medicine